=== PATIENT | male | born 1980 | race Hispanic/Latino ===

== ENCOUNTER 2017-09-02 19:49 | Emergency (ER) | payer SELFPAY ==
[2017-09-02 20:14] LABS: APPEARANCE,URINE Clear (CLEAR); BILIRUBIN,URINE Negative (NEGATIVE); COLOR,URINE Yellow (YELLOW); GLUCOSE, URINE (UA) Negative (NEGATIVE); KETONES,URINE Negative (NEGATIVE); LEUKOCYTE ESTERASE ,URINE Negative (NEGATIVE); NITRATE,URINE Negative (NEGATIVE); OCCULT BLOOD,URINE Negative (NEGATIVE); PROTEIN,URINE 300 (NEGATIVE)
[2017-09-02 20:24] LABS: BACTERIA,URINE Rare /HPF (None Seen); MUCUS,URINE None Seen LPF (None Seen); RBC,URINE None Seen /HPF (0-1); SQUAMOUS EPITHELIAL CELL,UR Few /HPF (0-2); WBC,URINE 0-1 /HPF (0-1); YEAST,URINE BUDDING Rare /HPF (None Seen)
== END 2017-09-02 20:37 | disposition home or self-care (01) ==
LOC: EDH 19:49
DX: S39.012A Strain of muscle, fascia and tendon of lower back, initial encounter (principal); R10.9 Unspecified abdominal pain; E11.9 Type 2 diabetes mellitus without complications; I10 Essential (primary) hypertension; Z79.899 Other long term (current) drug therapy; X58.XXXA Exposure to other specified factors, initial encounter; Y93.89 Activity, other specified; Y92.89 Other specified places as the place of occurrence of the external cause; Y99.8 Other external cause status
CPT/HCPCS: 81001

== ENCOUNTER 2018-07-01 12:08 | Emergency (ER) | payer SELFPAY ==
[2018-07-01 13:28] LABS: BASOPHILS % (AUTO) 0.9 % (0.0-5.0); EOSINOPHILS % (AUTO) 0.5 % (0.0-8.0); HEMATOCRIT 47.7 % (42-54); LYMPHOCYTES % (AUTO) 22.6 % (21.0-51.0); MEAN CORPUSCULAR HEMOGLOBIN 27.7 pg (27.0-33.0); MEAN CORPUSCULAR HGB CONC 32.7 g/dL (32.0-36.0); MEAN CORPUSCULAR VOLUME 84.6 fL (79-99); MONOCYTES % (AUTO) 8.6 % (3.0-13.0); NEUTROPHILS % (AUTO) 67.4 % (40.0-77.0); PLATELET COUNT (AUTO) 199 K/uL (130-400); RED BLOOD CELL COUNT(AUTO) 5.64 MIL/uL (4.50-6.20); RED CELL DISTRIBUTION WIDTH 13.9 % (11.0-15.5); WHITE BLOOD COUNT (AUTO) 6.2 K/uL (4.8-10.8)
[2018-07-01 13:47] LABS: CREATININE 1.5 mg/dL (0.5-1.5); POTASSIUM 4.1 mmol/L (3.5-5.1)
[2018-07-01 13:52] LABS: ALBUMIN 3.6 g/dL (3.5-5.0); BILIRUBIN,TOTAL 0.7 mg/dL (0.2-1.0); TOTAL PROTEIN, SERUM 8.4 g/dL (6.0-8.3)
== END 2018-07-01 14:26 | disposition home or self-care (01) ==
LOC: EDH 12:08
DX: K80.80 Other cholelithiasis without obstruction (principal); K21.9 Gastro-esophageal reflux disease without esophagitis; I10 Essential (primary) hypertension; Z87.891 Personal history of nicotine dependence
CPT/HCPCS: 36415; 74176; 80053; 83690; 84484; 85025; 93005

== ENCOUNTER → 2020-09-16 | Emergency (ER) | payer OTHER | LOC: EDH 16:30 | DX: T16.2XXA Foreign body in left ear, initial encounter (principal); E11.9 Type 2 diabetes mellitus without complications; I10 Essential (primary) hypertension; Z79.899 Other long term (current) drug therapy; X58.XXXA Exposure to other specified factors, initial encounter; Y93.89 Activity, other specified; Y92.89 Other specified places as the place of occurrence of the external cause; Y99.8 Other external cause status | CPT/HCPCS: 99281 ==

== ENCOUNTER 2020-10-24 16:00 | Emergency (ER) | payer OTHER ==
[~2020-10-24] VITALS: Ht 170.2 cm; Wt 167.8 kg
[2020-10-24 17:53] LABS: AMPHET/METH SCREEN,URINE NEGATIVE (NEGATIVE); BARBITURATE SCREEN, URINE NEGATIVE (NEGATIVE); BENZODIAZEPINES SCREEN,URINE NEGATIVE (NEGATIVE); CANNABINOID SCREEN,URINE NEGATIVE (NEGATIVE); COCAINE SCREEN,URINE NEGATIVE (NEGATIVE); OPIATE SCREEN,URINE NEGATIVE (NEGATIVE); PHENCYCLIDINE SCREEN,URINE NEGATIVE (NEGATIVE)
[2020-10-24 19:54] LABS: BASOPHILS % (AUTO) 0.4 % (0.0-5.0); EOSINOPHILS % (AUTO) 0.6 % (0.0-8.0); HEMATOCRIT 45.7 % (42-54); MEAN CORPUSCULAR HEMOGLOBIN 28.3 pg (27.0-33.0); MEAN CORPUSCULAR HGB CONC 32.2 g/dL (32.0-36.0); MEAN CORPUSCULAR VOLUME 88.1 fL (79-99); MONOCYTES % (AUTO) 9.2 % (3.0-13.0); NEUTROPHILS % (AUTO) 64.5 % (40.0-77.0); PLATELET COUNT (AUTO) 179 K/uL (130-400); RED BLOOD CELL COUNT(AUTO) 5.19 MIL/uL (4.50-6.20); RED CELL DISTRIBUTION WIDTH 13.2 % (11.0-15.5); WHITE BLOOD COUNT (AUTO) 7.1 K/uL (4.8-10.8)
[2020-10-24 20:00] VITALS: BP 148/91
[2020-10-24 20:11] LABS: CARBON DIOXIDE 23 mmol/L (21-32); CHLORIDE 107 mmol/L (101-111); CREATININE 1.6 mg/dL (0.5-1.5); GLOMERULAR FILTR. RATE CALC 51 mL/min (>60); GLUCOSE,RANDOM 97 mg/dL (70-105); POTASSIUM 4.2 mmol/L (3.5-5.1); SODIUM SERUM 141 mmol/L (136-145); UREA NITROGEN, BLOOD 21 mg/dL (7-18)
[2020-10-24 20:23] LABS: ALANINE AMINOTRANSFERASE 37 U/L (12-78); ALBUMIN 3.6 g/dL (3.5-5.0); ASPARTATE AMINOTRANSFERASE 31 U/L (10-37); BILIRUBIN,TOTAL 0.7 mg/dL (0.2-1.0); CREATINE KINASE, TOTAL 218 U/L (21-232); MYOGLOBIN 185 ng/mL (10-92); TOTAL PROTEIN, SERUM 8.4 g/dL (6.0-8.3); TROPONIN I < 0.04 ng/mL (0.00-0.06)
[2020-10-24] MEDS ORDERED: HYDROCODONE/ACETAMINOPHEN 10/325 MG TAB PO ONE (20:30)
[2020-10-24] MEDS ORDERED: CYCLOBENZAPRINE HCL 10 MG TABLET PO ONE (20:30)
[2020-10-24] MEDS ORDERED: CYCLOBENZAPRINE HCL 10 MG TABLET ONE (20:42)
[2020-10-24] MEDS ORDERED: HYDROCODONE/ACETAMINOPHEN 10/325 MG TAB ONE (20:43)
[2020-10-24] MEDS ORDERED: TRAM1TAB PO (21:57)
[2020-10-24] MEDS ORDERED: CYCL10 PO (21:57)
[2020-10-24 22:03] VITALS: BP 145/83
== END 2020-10-24 22:10 | disposition home or self-care (01) ==
LOC: EDH 16:00
DX: M94.0 Chondrocostal junction syndrome [Tietze] (principal); R07.89 Other chest pain; I10 Essential (primary) hypertension; E78.5 Hyperlipidemia, unspecified; E66.9 Obesity, unspecified; Z79.899 Other long term (current) drug therapy
CPT/HCPCS: 36415; 71045; 80053; 80305; 82550; 83874; 84484; 85025; 93005

== ENCOUNTER → 2022-05-19 | Outpatient (CLI) | payer BC ==
[~2022-05-19] MED LIST: ACET-2079 PO; ATOR10 PO; CYCL10TA16 PO; FOLI1TAB85 PO; GLIP5TAB11 PO; LOSA100T58 PO; TRAM1TAB2 PO; VERA120T92 PO
== END | disposition home or self-care (01) ==
LOC: RAH 10:58
PROVIDERS: ATTEND Neurological Surgery
DX: M47.26 Other spondylosis with radiculopathy, lumbar region (principal); M48.061 Spinal stenosis, lumbar region without neurogenic claudication; M51.24 Other intervertebral disc displacement, thoracic region; M48.04 Spinal stenosis, thoracic region
CPT/HCPCS: 72148

== ENCOUNTER 2022-05-24 17:00 | Observation (INO) | payer BC ==
[~2022-05-24] VITALS: Ht 170.2 cm; Wt 159.3 kg
[2022-05-24 11:05] LABS: BASOPHILS % (AUTO) 0.4 % (0.0-5.0); EOSINOPHILS % (AUTO) 0.8 % (0.0-8.0); HEMATOCRIT 47.8 % (42-54); LYMPHOCYTES % (AUTO) 23.6 % (21.0-51.0); MEAN CORPUSCULAR VOLUME 90.4 fL (79-99); NEUTROPHILS % (AUTO) 65.8 % (40.0-77.0); PLATELET COUNT (AUTO) 171 K/uL (130-400); RED BLOOD CELL COUNT(AUTO) 5.29 MIL/uL (4.50-6.20); RED CELL DISTRIBUTION WIDTH 13.2 % (11.0-15.5); WHITE BLOOD COUNT (AUTO) 5.2 K/uL (4.8-10.8)
[2022-05-24 11:14] LABS: CREATININE 1.7 mg/dL (0.5-1.5); POTASSIUM 4.3 mmol/L (3.5-5.1)
[2022-05-24 13:35] VITALS: BP 181/87
[~2022-05-24 17:00] MED LIST changes: +CEFAZOLIN SODIUM 1 GM VIAL IVPB SCH; -CYCL10TA16 PO; -TRAM1TAB2 PO
[2022-05-25] VITALS (22 sets, daily range): BP systolic 96–160; BP diastolic 33–79
[2022-05-25] MEDS ORDERED: BUPIVACAINE/EPI/PF 0.5% 30ML VIAL IJ ONE (04:49)
[2022-05-25] MEDS ORDERED: THROMBIN-JMI 20000 UNIT KIT TP ONE (04:49)
[2022-05-25] MEDS ORDERED: CEFAZOLIN SODIUM 1 GM VIAL ONE ×4 (04:49→20:44)
[2022-05-25] MEDS ORDERED: PROPOFOL 1000 MG/100 ML 200 ML IV ONE (05:32)
[2022-05-25] MEDS ORDERED: DEXAMETHASONE SOD PHOSPHATE 4 MG/ML 1ML VIAL ONE ×2 (05:39→07:39)
[2022-05-25] MEDS ORDERED: 0.9%NACL 1000ML 1,000 ML IV ONE ×2 (06:28→14:02)
[2022-05-25] MEDS ORDERED: FAMOTIDINE 20MG VIAL IV ONE (07:18)
[2022-05-25] MEDS ORDERED: HYDROMORPHONE 1 MG INJ ONE (07:19)
[2022-05-25] MEDS ORDERED: SUCCINYLCHOLINE CHLORIDE 20 MG/ML 10 ML VIAL ONE (07:21)
[2022-05-25] MEDS ORDERED: LIDOCAINE PF 100MG/5ML (2%) SYRINGE 5ML ONE (07:21)
[2022-05-25] MEDS ORDERED: GLYCOPYRROLATE 1 MG/5 ML SYRINGE ONE (07:21)
[2022-05-25] MEDS ORDERED: MIDAZOLAM HCL 1 MG/ML 2ML VIAL ONE ×2 (07:21→09:45)
[2022-05-25] MEDS ORDERED: PROPOFOL 10 MG/ML 20ML VIAL IV ONE (07:21)
[2022-05-25] MEDS ORDERED: PHENYLEPHRINE HCL 10 MG/ML 1ML VIAL IV ONE (07:22)
[2022-05-25] MEDS ORDERED: FENTANYL CITRATE PF 50 MCG/1 ML 2ML VIAL ONE ×2 (07:22→14:02)
[2022-05-25] MEDS ORDERED: ROCURONIUM 10MG/1ML SYR 10 MG/ML ML ONE (07:22)
[2022-05-25] MEDS ORDERED: ONDANSETRON 4MG INJ ONE ×2 (08:53→13:41)
[2022-05-25] MEDS ORDERED: ALBUMIN (HUMAN) 25% 0 ML IV ONE (09:46)
[2022-05-25] MEDS ORDERED: ALBUMIN (HUMAN) 5% 250 ML IV ONE (09:49)
[2022-05-25] MEDS ORDERED: CEFAZOLIN SODIUM 3 GM VIAL IV ONE (12:30)
[2022-05-25] MEDS: DEXAMETHASONE SOD PHOSPHATE 4 MG/ML 1ML VIAL IVP SCH ×2 (13:30→15:51)
[2022-05-25] MEDS ORDERED: ACETAMINOPHEN WITH CODEINE 1 TAB TAB PO PRN (13:30)
[2022-05-25] MEDS ORDERED: 0.9%NACL 10ML VIAL IVP PRN (13:30)
[2022-05-25] MEDS ORDERED: PROMETHAZINE HCL 25 MG/ML 1ML AMPULE IM PRN (13:30)
[2022-05-25] MEDS ORDERED: CEFAZOLIN SODIUM 2 GM VIAL IVP SCH (13:30)
[2022-05-25] MEDS ORDERED: HYDROCODONE/ACETAMINOPHEN 5/325 MG TAB PO PRN (13:30)
[2022-05-25] MEDS ORDERED: MORPHINE 2 MG SYG IVP PRN (13:30)
[2022-05-25] MEDS ORDERED: MEPERIDINE-PF 25 MG/ML SYG ONE (13:42)
[2022-05-25] MEDS: LACTATED RINGERS 1000ML 1,000 ML IV SCH (15:59)
[2022-05-25] MEDS ORDERED: CEFAZOLIN SODIUM 3 GM in DEXTROSE 5%-WATER 100 ML IVPB SCH (20:00)
[2022-05-25] MEDS: GLIPIZIDE 5 MG TABLET PO SCH (21:02)
[2022-05-25] MEDS: ATORVASTATIN 20 MG TABLET PO SCH (21:16)
[2022-05-25] MEDS ORDERED: CYCLOBENZAPRINE HCL 10 MG TABLET PO PRN (21:30)
[2022-05-26] VITALS: BP 123/63
[2022-05-26] MEDS: DEXAMETHASONE SOD PHOSPHATE 4 MG/ML 1ML VIAL IVP SCH ×4 (01:54→19:30)
[2022-05-26] MEDS: LACTATED RINGERS 1000ML 1,000 ML IV SCH (02:50)
[2022-05-26 04:00] VITALS: BP 134/64
[2022-05-26] MEDS ORDERED: PHARMACY COMMUNICATION MISC STA (07:47)
[2022-05-26 08:00] VITALS: BP 144/86
[2022-05-26] MEDS ORDERED: MORPHINE 2 MG SYG IVP PRN (08:00)
[2022-05-26] MEDS ORDERED: 0.9%NACL 10ML VIAL IVP PRN (08:00)
[2022-05-26] MEDS ORDERED: HYDROCODONE/ACETAMINOPHEN 5/325 MG TAB PO PRN (08:00)
[2022-05-26] MEDS ORDERED: LACTATED RINGERS 1000ML 1,000 ML IV SCH (08:00)
[2022-05-26] MEDS ORDERED: PROMETHAZINE HCL 25 MG/ML 1ML AMPULE IM PRN (08:00)
[2022-05-26] MEDS ORDERED: DEXAMETHASONE SOD PHOSPHATE 4 MG/ML 1ML VIAL IVP SCH (08:00)
[2022-05-26] MEDS: VERAPAMIL HCL 240 MG SRTAB PO SCH (09:00)
[2022-05-26] MEDS ORDERED: [UNRECOGNIZED DRUG - OTHER] IV SCH (09:00)
[2022-05-26] MEDS ORDERED: METHYLPREDNISOLONE SOD SUCC IV SCH ×3 (09:00→10:30)
[2022-05-26] MEDS: Vitamin B Complex/Vit C/Folic Acid PO SCH (09:39)
[2022-05-26] MEDS: LOSARTAN 100 MG TABLET PO SCH (09:39)
[2022-05-26] MEDS ORDERED: NACL 0.9% IV SCH (10:30)
[2022-05-26] MEDS ORDERED: [UNRECOGNIZED DRUG - OTHER] IV SCH (10:30)
[2022-05-26 12:00] VITALS: BP 135/85
[2022-05-26 16:00] VITALS: BP 126/76
[2022-05-26 20:00] VITALS: BP 119/71
[2022-05-26] MEDS: ATORVASTATIN 20 MG TABLET PO SCH (21:28)
[2022-05-26] MEDS: GLIPIZIDE 5 MG TABLET PO SCH (21:29)
[2022-05-27] VITALS: BP 123/69
[2022-05-27 06:00] VITALS: BP 126/62
[2022-05-27 08:25] VITALS: BP 121/60
[2022-05-27] MEDS: VERAPAMIL HCL 240 MG SRTAB PO SCH (10:01)
[2022-05-27] MEDS: LOSARTAN 100 MG TABLET PO SCH (10:01)
[2022-05-27] MEDS: Vitamin B Complex/Vit C/Folic Acid PO SCH (10:01)
[2022-05-27 11:25] VITALS: BP 129/62
== END 2022-05-27 14:43 | disposition home or self-care (01) ==
LOC: DAHIP 05-25 06:05 → 4CH 05-25 15:57 → EDSTATUS 05-25 17:00
PROVIDERS: ADMIT Neurological Surgery; ATTEND Neurological Surgery
DX: M48.04 Spinal stenosis, thoracic region (principal); Z20.822 Contact with and (suspected) exposure to COVID-19; G99.2 Myelopathy in diseases classified elsewhere; E11.9 Type 2 diabetes mellitus without complications; E66.01 Morbid (severe) obesity due to excess calories; G95.20 Unspecified cord compression; M21.372 Foot drop, left foot; M48.061 Spinal stenosis, lumbar region without neurogenic claudication; Z79.899 Other long term (current) drug therapy; Z98.890 Other specified postprocedural states; Z68.43 Body mass index [BMI] 50.0-59.9, adult
CPT/HCPCS: 80048; 85025; 87426; 36415 ×2; 71045; 93005; 63046; 63048; 96365; 96375; 82948 ×9; 72020; 96376; 96367; 85014; 85018; 72141; 97161; 97039; 97116 ×2; A6260; G0378 ×49; G0379; A4344; A4649 ×4; P9045; J0690 ×7; J7120 ×2; J3490 ×3; J3010 ×2; J1170; J0330; J7030 ×2; J2001; J2250 ×2; J2704 ×2; J7060; J2405 ×2; J1100 ×7; J2175; J2370; A5113; A4215; A4223; A4222; A4221; A4600; A4510; J7040 ×2; J2930 ×4; J7050; P9047

== ENCOUNTER → 2025-05-14 | Outpatient (CLI) | payer OTHER ==
[~2025-05-14] MED LIST changes: -ACET-2079 PO; -ATOR10 PO; -CEFAZOLIN SODIUM 1 GM VIAL IVPB SCH; +FERR-72 PO; -GLIP5TAB11 PO; -LOSA100T58 PO; +LOSA100T59 PO; +VERA120T20 PO; -VERA120T92 PO
== END | disposition home or self-care (01) ==
LOC: RAH 15:16
PROVIDERS: ATTEND Internal Medicine Cardiovascular Disease
DX: Z13.6 Encounter for screening for cardiovascular disorders (principal)
CPT/HCPCS: 75571